=== PATIENT | female | born 1985 | race Two or more races ===

== ENCOUNTER 2021-01-29 09:07 | Inpatient (IN) | payer BC ==
[~2021-01-29] VITALS: Ht 162.6 cm; Wt 74.0 kg
[2021-01-29] MEDS ORDERED: cefTRIAXone 1GM/50ML D5W 50 ML IV ONE (10:45)
[2021-01-29] MEDS ORDERED: DexAMETHasone SOD PHOS 10MG/1ML VIAL INJ IV ONE (10:45)
[2021-01-29] MEDS ORDERED: ASCORBIC ACID 500 MG TAB PO ONE (10:45)
[2021-01-29] MEDS ORDERED: ZINC SULFATE 220mg CAP or TAB PO ONE (10:45)
[2021-01-29] MEDS ORDERED: AZITHROMYCIN 500MG/ 250ML 250 ML IV ONE (10:45)
[2021-01-29 10:56] LABS: Basophils # (auto) 0 10 ^3/uL (0-0.2); Basophils % (auto) 0.4 % (0.0-2.0); Eosinophils # (auto) 0 10 ^3/uL (0-0.8); Hematocrit 42.3 % (36.0-46.0); Hemoglobin 14.7 g/dL (12.2-16.2); Lymphocytes # (auto) 0.7 10 ^3/uL (0.4-5.4); Lymphocytes % (auto) 23.3 % (10.0-50.0); Mean Corpuscular Hemoglobin 30.5 pg (28.0-32.0); Mean Corpuscular Hgb Conc. 34.7 g/dL (32.0-36.0); Mean Corpuscular Volume 87.9 fL (80.0-100.0); Monocytes # (auto) 0.2 10 ^3/uL (0-1.3); Monocytes % (auto) 5.3 % (0.0-12.0); Neutrophils # (auto) 2.1 10 ^3/uL (1.6-8.6); Nucleated Red Blood Cells % 0.2 %; Red Blood Cells 4.81 10^6/uL (4.0-5.20); Red Cell Distribution Width 13.4 % (11.8-14.3); White Blood Cell 2.9 10^3/uL (4.4-10.8)
[2021-01-29 11:15] LABS: Potassium 3.1 mmol/L (3.5-5.1)
[2021-01-29 11:27] LABS: Albumin 3.9 g/dL (3.4-5.0); BUN/Creatinine Ratio 6.8; Bilirubin, Total 0.4 mg/dL (0.2-1.0); CRP High Sensitivity 14.5 mg/dL (< 0.3); Calcium 9.6 mg/dL (8.5-10.1); Total Protein 8.8 g/dL (6.4-8.2)
[2021-01-29] MEDS ORDERED: POTASSIUM EFFERVESENT TAB 25 MEQ PO ONE (13:30)
[2021-01-29] MEDS ORDERED: NITROGLYCERIN 0.4 MG SL TAB SL PRN (14:15)
[2021-01-29] MEDS ORDERED: ACETAMINOPHEN 500 MG TAB PO PRN (14:15)
[2021-01-29] MEDS ORDERED: MORPHINE SULFATE INJECTION 2 MG/ML SYRG IV PRN (14:15)
[2021-01-29] MEDS ORDERED: SODIUM CHLORIDE 0.9% 1,000 ML IV ONE (14:30)
[2021-01-29] MEDS ORDERED: DOCUSATE CALCIUM 240 MG CAP PO PRN (14:30)
[2021-01-29] MEDS ORDERED: ONDANSETRON HCL 4 MG/2 ML VIAL IV PRN (14:30)
[2021-01-29] MEDS ORDERED: LABETALOL HCL 5 MG/ML 4ML SYRINGE IV PRN (14:30)
[2021-01-29 16:06] LABS: Urine Bacteria FEW /hpf (None Seen); Urine Blood Negative /uL (Negative); Urine Specific Gravity 1.009 (1.001-1.035); Urine WBC 12 /hpf (0 - 5)
[2021-01-29] MEDS ORDERED: REMDESIVIR PER PHARMACY 0 ML IV SCH (18:00)
[2021-01-29 19:48] LABS: BUN/Creatinine Ratio 8.5; Calcium 8.4 mg/dL (8.5-10.1); Potassium 3.7 mmol/L (3.5-5.1)
[2021-01-29] MEDS ORDERED: REMDESIVIR 200 MG in NS 210ml LOADING DOSE ADULT IV ONE (20:00)
[2021-01-29] MEDS: ENOXAPARIN SOD 40 MG/0.4 ML SYRINGE SC SCH (21:15)
[2021-01-29 22:00] VITALS: BP 105/64
[2021-01-29] MEDS: BUDESONIDE (INHALATION) 180 MCG IH IN SCH (22:00)
[2021-01-30 01:42] VITALS: BP 101/63
[2021-01-30 05:00] VITALS: BP 92/73
[2021-01-30] MEDS: ALBUTEROL SULF HFA 90MCG INH 200DOSE IN PRN ×2 (07:19→19:49)
[2021-01-30] MEDS: BUDESONIDE (INHALATION) 180 MCG IH IN SCH ×2 (07:19→19:48)
[2021-01-30 07:24] LABS: Basophils # (auto) 0 10 ^3/uL (0-0.2); Basophils % (auto) 0.1 % (0.0-2.0); Eosinophils # (auto) 0 10 ^3/uL (0-0.8); Eosinophils % (auto) 0.1 % (0.0-7.0); Hematocrit 38.4 % (36.0-46.0); Hemoglobin 13.2 g/dL (12.2-16.2); Lymphocytes # (auto) 0.9 10 ^3/uL (0.4-5.4); Lymphocytes % (auto) 22.4 % (10.0-50.0); Mean Corpuscular Hemoglobin 30.8 pg (28.0-32.0); Mean Corpuscular Hgb Conc. 34.3 g/dL (32.0-36.0); Mean Corpuscular Volume 89.8 fL (80.0-100.0); Monocytes # (auto) 0.2 10 ^3/uL (0-1.3); Monocytes % (auto) 5.2 % (0.0-12.0); Neutrophils % (auto) 72.2 % (37.0-80.0); Red Blood Cells 4.28 10^6/uL (4.0-5.20); Red Cell Distribution Width 13.6 % (11.8-14.3); White Blood Cell 4.2 10^3/uL (4.4-10.8)
[2021-01-30 07:38] LABS: Potassium 3.5 mmol/L (3.5-5.1)
[2021-01-30 07:44] LABS: BUN/Creatinine Ratio 14.5; Bilirubin, Total 0.3 mg/dL (0.2-1.0); Total Protein 7.4 g/dL (6.4-8.2)
[2021-01-30 07:55] LABS: Thyroid Stimulating Hormone 4.26 uIU/mL (0.358-3.74)
[2021-01-30 09:00] VITALS: BP 114/70
[2021-01-30] MEDS: PANTOPRAZOLE 40 MG TAB PO SCH (09:05)
[2021-01-30] MEDS: ZINC SULFATE 220mg CAP or TAB PO SCH (09:05)
[2021-01-30] MEDS: ASCORBIC ACID 1,000 MG TAB PO SCH (09:05)
[2021-01-30] MEDS: CHOLECALCIFEROL (VITD3) 2,000 UNIT CAP/TAB PO SCH (09:05)
[2021-01-30] MEDS: cefTRIAXone 1GM/50ML D5W 50 ML IV SCH (09:05)
[2021-01-30] MEDS: ENOXAPARIN SOD 40 MG/0.4 ML SYRINGE SC SCH ×2 (09:06→21:50)
[2021-01-30] MEDS: D5W/SOD CHLO 0.9% 1,000 ML IV SCH ×3 (10:46→21:56)
[2021-01-30] MEDS: AZITHROMYCIN 500MG/ 250ML 250 ML IV SCH (10:46)
[2021-01-30] MEDS: DexAMETHasone SOD PHOS 10MG/1ML VIAL INJ IV SCH (10:46)
[2021-01-30 13:00] VITALS: BP 112/66
[2021-01-30] MEDS: REMDESIVIR 100mg 100 MG in SODIUM CHL 0.9% 230 ML IV SCH (16:10)
[2021-01-30 17:00] VITALS: BP 108/77
[2021-01-30 22:00] VITALS: BP 117/67
[2021-01-31] MEDS: D5W/SOD CHLO 0.9% 1,000 ML IV SCH ×3 (03:53→19:20)
[2021-01-31 05:06] VITALS: BP 107/66
[2021-01-31] MEDS: BUDESONIDE (INHALATION) 180 MCG IH IN SCH ×2 (07:00→21:46)
[2021-01-31] MEDS: ALBUTEROL SULF HFA 90MCG INH 200DOSE IN PRN ×2 (07:00→21:46)
[2021-01-31 09:00] VITALS: BP 111/74
[2021-01-31] MEDS: cefTRIAXone 1GM/50ML D5W 50 ML IV SCH (09:20)
[2021-01-31] MEDS: DexAMETHasone SOD PHOS 10MG/1ML VIAL INJ IV SCH (09:20)
[2021-01-31] MEDS: PANTOPRAZOLE 40 MG TAB PO SCH (09:20)
[2021-01-31] MEDS: ZINC SULFATE 220mg CAP or TAB PO SCH (09:20)
[2021-01-31] MEDS: CHOLECALCIFEROL (VITD3) 2,000 UNIT CAP/TAB PO SCH (09:21)
[2021-01-31] MEDS: ENOXAPARIN SOD 40 MG/0.4 ML SYRINGE SC SCH ×2 (09:21→20:52)
[2021-01-31] MEDS: ASCORBIC ACID 1,000 MG TAB PO SCH (09:21)
[2021-01-31] MEDS: AZITHROMYCIN 500MG/ 250ML 250 ML IV SCH (10:10)
[2021-01-31] MEDS ORDERED: guaiFENesin-DM 100/10mg/5ml SYR PO PRN (12:15)
[2021-01-31 13:00] VITALS: BP 103/64
[2021-01-31] MEDS: REMDESIVIR 100mg 100 MG in SODIUM CHL 0.9% 230 ML IV SCH (14:57)
[2021-01-31 17:00] VITALS: BP 108/69
[2021-01-31 22:00] VITALS: BP 119/69
[2021-02-01] MEDS: D5W/SOD CHLO 0.9% 1,000 ML IV SCH ×4 (02:00→22:28)
[2021-02-01 05:25] VITALS: BP 110/74
[2021-02-01 09:00] VITALS: BP 110/70
[2021-02-01] MEDS: BUDESONIDE (INHALATION) 180 MCG IH IN SCH ×2 (09:27→19:55)
[2021-02-01] MEDS: ALBUTEROL SULF HFA 90MCG INH 200DOSE IN PRN ×2 (09:27→19:55)
[2021-02-01] MEDS: cefTRIAXone 1GM/50ML D5W 50 ML IV SCH (10:03)
[2021-02-01] MEDS: DexAMETHasone SOD PHOS 10MG/1ML VIAL INJ IV SCH (10:03)
[2021-02-01] MEDS: AZITHROMYCIN 500MG/ 250ML 250 ML IV SCH (10:03)
[2021-02-01] MEDS: ZINC SULFATE 220mg CAP or TAB PO SCH (10:03)
[2021-02-01] MEDS: PANTOPRAZOLE 40 MG TAB PO SCH (10:04)
[2021-02-01] MEDS: ASCORBIC ACID 1,000 MG TAB PO SCH (10:04)
[2021-02-01] MEDS: CHOLECALCIFEROL (VITD3) 2,000 UNIT CAP/TAB PO SCH (10:04)
[2021-02-01] MEDS: ENOXAPARIN SOD 40 MG/0.4 ML SYRINGE SC SCH ×2 (10:05→20:28)
[2021-02-01 12:14] LABS: Albumin 2.4 g/dL (3.4-5.0); BUN/Creatinine Ratio 12.9; Bilirubin, Total 0.2 mg/dL (0.2-1.0); Calcium 8.6 mg/dL (8.5-10.1); Total Protein 6.3 g/dL (6.4-8.2)
[2021-02-01 12:28] LABS: Potassium 2.6 mmol/L (3.5-5.1)
[2021-02-01] MEDS ORDERED: POTASSIUM CHLORIDE 60 MEQ, LIDOCAINE 1% (LOCAL ANESTH.) 6 ML in SODIUM CHL 0.9% 500 ML IV ONE (12:30)
[2021-02-01 12:46] VITALS: BP_SYST 107; BP_SYST 110; BP_DIAS 70; BP_DIAS 72
[2021-02-01] MEDS: REMDESIVIR 100mg 100 MG in SODIUM CHL 0.9% 230 ML IV SCH (15:40)
[2021-02-01 16:58] VITALS: BP 115/78
[2021-02-01 22:00] VITALS: BP 121/82
[2021-02-02] MEDS: D5W/SOD CHLO 0.9% 1,000 ML IV SCH (04:40)
[2021-02-02 05:00] VITALS: BP 124/82
[2021-02-02 06:35] LABS: Potassium 3.3 mmol/L (3.5-5.1)
[2021-02-02 06:42] LABS: Albumin 2.5 g/dL (3.4-5.0); BUN/Creatinine Ratio 13.7; Bilirubin, Total 0.2 mg/dL (0.2-1.0); Calcium 8.2 mg/dL (8.5-10.1); Total Protein 6.1 g/dL (6.4-8.2)
[2021-02-02] MEDS: ALBUTEROL SULF HFA 90MCG INH 200DOSE IN PRN ×3 (08:21→19:32)
[2021-02-02] MEDS: BUDESONIDE (INHALATION) 180 MCG IH IN SCH ×3 (08:21→19:32)
[2021-02-02 09:00] VITALS: BP 118/81
[2021-02-02] MEDS: DexAMETHasone SOD PHOS 10MG/1ML VIAL INJ IV SCH (09:58)
[2021-02-02] MEDS: cefTRIAXone 1GM/50ML D5W 50 ML IV SCH (09:58)
[2021-02-02] MEDS: AZITHROMYCIN 500MG/ 250ML 250 ML IV SCH (09:58)
[2021-02-02] MEDS: ASCORBIC ACID 1,000 MG TAB PO SCH (09:59)
[2021-02-02] MEDS: CHOLECALCIFEROL (VITD3) 2,000 UNIT CAP/TAB PO SCH (09:59)
[2021-02-02] MEDS: PANTOPRAZOLE 40 MG TAB PO SCH (09:59)
[2021-02-02] MEDS: ZINC SULFATE 220mg CAP or TAB PO SCH (09:59)
[2021-02-02] MEDS ORDERED: POTASSIUM CHL 20 Meq TABLET PO ONE (10:00)
[2021-02-02] MEDS: ENOXAPARIN SOD 40 MG/0.4 ML SYRINGE SC SCH ×2 (10:00→20:35)
[2021-02-02 13:00] VITALS: BP 113/71
[2021-02-02] MEDS: REMDESIVIR 100mg 100 MG in SODIUM CHL 0.9% 230 ML IV SCH (14:35)
[2021-02-02 17:00] VITALS: BP 106/74
[2021-02-02 22:00] VITALS: BP 116/70
[2021-02-03 05:00] VITALS: BP 117/75
[2021-02-03 09:23] VITALS: BP 112/72
[2021-02-03] MEDS: CHOLECALCIFEROL (VITD3) 2,000 UNIT CAP/TAB PO SCH (09:50)
[2021-02-03] MEDS: cefTRIAXone 1GM/50ML D5W 50 ML IV SCH (09:50)
[2021-02-03] MEDS: DexAMETHasone SOD PHOS 10MG/1ML VIAL INJ IV SCH (09:50)
[2021-02-03] MEDS: PANTOPRAZOLE 40 MG TAB PO SCH (09:50)
[2021-02-03] MEDS: AZITHROMYCIN 500MG/ 250ML 250 ML IV SCH (09:50)
[2021-02-03] MEDS: ZINC SULFATE 220mg CAP or TAB PO SCH (09:50)
[2021-02-03] MEDS: ENOXAPARIN SOD 40 MG/0.4 ML SYRINGE SC SCH ×2 (09:51→21:43)
[2021-02-03] MEDS: ASCORBIC ACID 1,000 MG TAB PO SCH (09:51)
[2021-02-03] MEDS: BUDESONIDE (INHALATION) 180 MCG IH IN SCH ×2 (11:38→21:24)
[2021-02-03] MEDS: ALBUTEROL SULF HFA 90MCG INH 200DOSE IN PRN ×2 (11:38→21:24)
[2021-02-03 12:49] VITALS: BP 104/65
[2021-02-03 17:26] VITALS: BP 110/65
[2021-02-03 22:00] VITALS: BP 107/69
[2021-02-04 05:00] VITALS: BP 107/72
[2021-02-04] MEDS: BUDESONIDE (INHALATION) 180 MCG IH IN SCH ×2 (07:30→21:37)
[2021-02-04] MEDS: ALBUTEROL SULF HFA 90MCG INH 200DOSE IN PRN ×2 (07:30→21:37)
[2021-02-04 08:00] VITALS: BP 137/76
[2021-02-04 08:35] VITALS: BP 112/70
[2021-02-04] MEDS: ZINC SULFATE 220mg CAP or TAB PO SCH (09:56)
[2021-02-04] MEDS: DexAMETHasone SOD PHOS 10MG/1ML VIAL INJ IV SCH (09:56)
[2021-02-04] MEDS: cefTRIAXone 1GM/50ML D5W 50 ML IV SCH (09:56)
[2021-02-04] MEDS: ASCORBIC ACID 1,000 MG TAB PO SCH (09:56)
[2021-02-04] MEDS: PANTOPRAZOLE 40 MG TAB PO SCH (09:56)
[2021-02-04] MEDS: CHOLECALCIFEROL (VITD3) 2,000 UNIT CAP/TAB PO SCH (09:56)
[2021-02-04] MEDS: ENOXAPARIN SOD 40 MG/0.4 ML SYRINGE SC SCH ×2 (09:57→21:20)
[2021-02-04 12:00] LABS: Potassium 3.3 mmol/L (3.5-5.1)
[2021-02-04 12:16] LABS: Albumin 2.5 g/dL (3.4-5.0); Bilirubin, Total 0.2 mg/dL (0.2-1.0); Calcium 8.6 mg/dL (8.5-10.1); Total Protein 6.1 g/dL (6.4-8.2)
[2021-02-04 12:32] VITALS: BP 117/73
[2021-02-04] MEDS ORDERED: POTASSIUM CHL 20 Meq TABLET PO ONE (12:45)
[2021-02-04 17:00] VITALS: BP 103/61
[2021-02-04 22:00] VITALS: BP 103/70
[2021-02-05 04:30] VITALS: BP 102/63
[2021-02-05] MEDS: BUDESONIDE (INHALATION) 180 MCG IH IN SCH ×2 (06:31→22:19)
[2021-02-05] MEDS: ALBUTEROL SULF HFA 90MCG INH 200DOSE IN PRN ×2 (06:31→22:19)
[2021-02-05 07:22] LABS: Basophils # (auto) 0 10 ^3/uL (0-0.2); Basophils % (auto) 0.2 % (0.0-2.0); Eosinophils # (auto) 0 10 ^3/uL (0-0.8); Eosinophils % (auto) 0.6 % (0.0-7.0); Hematocrit 44.5 % (36.0-46.0); Hemoglobin 15.2 g/dL (12.2-16.2); Lymphocytes # (auto) 2.2 10 ^3/uL (0.4-5.4); Lymphocytes % (auto) 29.3 % (10.0-50.0); Mean Corpuscular Hemoglobin 30.3 pg (28.0-32.0); Mean Corpuscular Hgb Conc. 34.1 g/dL (32.0-36.0); Mean Corpuscular Volume 88.8 fL (80.0-100.0); Monocytes # (auto) 0.5 10 ^3/uL (0-1.3); Monocytes % (auto) 7.2 % (0.0-12.0); Neutrophils # (auto) 4.7 10 ^3/uL (1.6-8.6); Neutrophils % (auto) 62.7 % (37.0-80.0); Nucleated Red Blood Cells % 0.2 %; Red Blood Cells 5.01 10^6/uL (4.0-5.20); White Blood Cell 7.5 10^3/uL (4.4-10.8)
[2021-02-05 08:00] VITALS: BP 107/74
[2021-02-05 09:19] VITALS: BP 107/74
[2021-02-05] MEDS: PANTOPRAZOLE 40 MG TAB PO SCH (09:58)
[2021-02-05] MEDS: ENOXAPARIN SOD 40 MG/0.4 ML SYRINGE SC SCH ×2 (09:58→22:41)
[2021-02-05] MEDS: cefTRIAXone 1GM/50ML D5W 50 ML IV SCH (09:58)
[2021-02-05] MEDS: ASCORBIC ACID 1,000 MG TAB PO SCH (09:58)
[2021-02-05] MEDS: CHOLECALCIFEROL (VITD3) 2,000 UNIT CAP/TAB PO SCH (09:58)
[2021-02-05] MEDS: ZINC SULFATE 220mg CAP or TAB PO SCH (09:58)
[2021-02-05 13:00] VITALS: BP 99/61
[2021-02-05 17:00] VITALS: BP 90/64
[2021-02-05 22:00] VITALS: BP 90/67
[2021-02-06 04:30] VITALS: BP 88/57
[2021-02-06] MEDS: ALBUTEROL SULF HFA 90MCG INH 200DOSE IN PRN (06:41)
[2021-02-06] MEDS: BUDESONIDE (INHALATION) 180 MCG IH IN SCH (06:41)
[2021-02-06 08:00] VITALS: BP 99/64
[2021-02-06 09:00] VITALS: BP 94/65
[2021-02-06] MEDS: ZINC SULFATE 220mg CAP or TAB PO SCH (09:31)
[2021-02-06] MEDS: PANTOPRAZOLE 40 MG TAB PO SCH (09:31)
[2021-02-06] MEDS: ENOXAPARIN SOD 40 MG/0.4 ML SYRINGE SC SCH (09:32)
[2021-02-06] MEDS: ASCORBIC ACID 1,000 MG TAB PO SCH (09:32)
[2021-02-06] MEDS: CHOLECALCIFEROL (VITD3) 2,000 UNIT CAP/TAB PO SCH (09:32)
== END 2021-02-06 10:51 | disposition home or self-care (01) | DRG 177 ==
LOC: ER 09:07 → TELE 14:13 → TELE-EAST 20:17
PROVIDERS: ADMIT Family Medicine; ATTEND Family Medicine
PROC: XW033E5 Introduction of Remdesivir Anti-infective into Peripheral Vein, Percutaneous Approach, New Technology Group 5 (ICD-10-PCS; principal; 2021-01-30)
DX: U07.1 COVID-19 (principal); J12.82 Pneumonia due to coronavirus disease 2019; J96.01 Acute respiratory failure with hypoxia; E87.1 Hypo-osmolality and hyponatremia; E86.0 Dehydration; E87.6 Hypokalemia; K52.9 Noninfective gastroenteritis and colitis, unspecified
CPT/HCPCS: 36415; 36600; 71045; 80048; 80053; 81001; 82306; 82728; 82805; 83036; 83605; 83615; 83735; 84443; 85025; 85379; 86141; 87040; 87086; 87426; 94640; 96365; 96367; 99291; G0378; J0696; J1100; J2001; J7042